=== PATIENT | male | born 1955 | race Caucasian/White ===

== ENCOUNTER 2017-03-13 15:14 | Emergency (ER) | payer OTHER ==
[~2017-03-13] VITALS: Ht 172.7 cm; Wt 108.9 kg
[2017-03-13 15:31] VITALS: BP 176/80
--- NOTE | 2017-03-13 15:49 | PHYS DOC ---
Past Medical History Past Medical History: Diabetes-Type II, High Cholesterol, Hypertension, Other Additional Past Medical Histor: PSORIASIS Past Surgical History: Other Additional Past Surgical Histo: VESTECTOMY Alcohol Use: Sober Drug Use: None Adult General Chief Complaint Chief Complaint: TESTICULAR PAIN OR INJURY [facility] HPI Patient is a 61 year old male presents to the emergency department with a history of vasectomy approximately 35 years ago. Patient states his testicle on the right had decreased to the size of a pecan and within the last 2 months he states he has had an increase in the size up to an egg. He denies dysuria, Patient states he has taken Tylenol yesterday for pain with minimal relief. 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 He denies fever, chills, nausea or vomiting. Review of Systems Review of Systems Constitutional: Denies fever or chills [] Eyes: Denies change in visual acuity, redness, or eye pain [] HENT: Denies nasal congestion or sore throat [] Respiratory: Denies cough or shortness of breath [] Cardiovascular: No additional information not addressed in HPI [] GI: Denies abdominal pain, nausea, vomiting, bloody stools or diarrhea [] : Denies dysuria or hematuria. C/o right testicle becoming larger Musculoskeletal: Denies back pain or joint pain [] Integument: Denies rash or skin lesions [] Neurologic: Denies headache, focal weakness or sensory changes [] Endocrine: Denies polyuria or polydipsia [] Current Medications Current Medications Current Medications Medications (Trade) Dose Ordered Sig/[facility] Start Time Stop Time Status Last Admin Dose Admin Acetaminophen (Tylenol) 650 mg 1X ONCE 03/13/17 16:00 03/13/17 16:03 DC 03/13/17 16:05 650 MG Allergies Allergies Allergies Coded Allergies Type Severity Reaction Last Updated Verified No Known Drug Allergies 03/13/17 No Physical Exam Physical Exam Constitutional: Well developed, well nourished, no acute distress, non-toxic appearance. [] HENT: Normocephalic, atraumatic, bilateral external ears normal, oropharynx moist, no oral exudates, nose normal. [] Eyes: PERRLA, EOMI, conjunctiva normal, no discharge. [] Neck: Normal range of motion, no tenderness, supple, no stridor. [] Cardiovascular:Heart rate regular rhythm Lungs & Thorax: no respiratory distress Skin: Warm, dry, no erythema, no rash. [] Extremities: No tenderness, no cyanosis, no clubbing, ROM intact, no edema. [] Neurologic: Alert and oriented X 3, normal motor function, normal sensory function, no focal deficits noted. [] Psychologic: Affect normal, judgement normal, mood normal. [] Right testicle appears to be riding higher than then the left. The are feels firm and full. negative cremasteric reflex Current Patient Data Vital Signs Vital Signs Date Time Temp Pulse Resp B/P (MAP) Pulse Ox O2 Delivery O2 Flow Rate FiO2 03/13/17 15:31 97.4 88 18 94 Room Air 97.4 Lab Values Laboratory Tests Test 03/13/17 15:45 Urine Collection Type Unknown Urine Color Yellow Urine Clarity Clear Urine pH 5.5 Urine Specific Stephen 1.025 Urine Protein Negative mg/dL (NEG-TRACE) Urine Glucose (UA) 100 mg/dL (NEG) Urine Ketones (Stick) Negative mg/dL (NEG) Urine Blood Negative (NEG) Urine Nitrite Negative (NEG) Urine Bilirubin Negative (NEG) Urine Urobilinogen Dipstick 0.2 mg/dL (0.2 mg/dL) Urine Leukocyte Esterase Negative (NEG) Urine RBC 0 /HPF (0-2) Urine WBC 0 /HPF (0-4) Urine Squamous Epithelial Cells Few /LPF Urine Bacteria 0 /HPF (0-FEW) Urine Hyaline Casts Few /HPF Urine Mucus Marked /LPF EKG EKG [] Radiology/Procedures Radiology/Procedures [][facility] [address] [place] [address] IMAGING REPORT Signed PATIENT: MISA GARCIA ACCOUNT: [id number] : 1955 LOCATION: ER AGE: 61 SEX: M EXAM STATUS: REG ER ORD. PHYSICIAN: CYRUS BARRON APRN REASON: pain in the scrotum/testicle, right PROCEDURE: TESTICULAR/SCROTUM Examination: Ultrasound testis History: History of right-sided testicular pain. Comparison: None available Findings: The right testis measures 3.7 x 3.5 x 3.3 cm. There are at least 2 irregular appearing hypoechoic masses identified in the right testis measuring 1.7 cm and 2.3 cm. The superior testicular mass appears irregular with possible extension to the right epididymis. However evaluation is limited. The right epididymis appears heterogeneous and enlarged. There is blood flow identified within these masses. The left testis measures 5.4 x 2.7 x 3.5 cm. Blood flow identified in the right and left testis. There is a small cyst identified in the left epididymis measuring 5 mm. Small bilateral hydroceles. Impression: Irregular hypoechoic masses identified in the right testis and possibly the right epididymis with vascular flow within as described above, suspect right testicular malignancy or metastasis. DICTATED and SIGNED BY: LIZZETTE PASCAL MD DATE: 03/13/17 [id number] CC: CYRUS BARRON APRN; NON,STAFF; UNKNOWN PCP NAME ~ Course & Med Decision Making Course & Med Decision Making Pertinent Labs and Imaging studies reviewed. (See chart for details) Urine was negative for urinary tract infection, ultrasound was completed with report showing an irregular hypoechoic mass identified in the right testes and possibly the right epididymis with the vascular flow within the described above suspected right testicular malignancy or metastasis. Patient will be discharged home with vicoprofen for pain. He was instructed that this medication will cause drowsiness do not take if you need to alert and oriented. Patient will placed on levoquin for the next 10 days. He was recommended to followup with his primary care provider as soon as possible. Patient agrees with discharge instructions, treatment regimen and followup recommendations. All questions and concerns were answered at bedside. [] Dragon Disclaimer Dragon Disclaimer This electronic medical record was generated, in whole or in part, using a voice recognition dictation system. Departure Departure Impression: Primary Impression: Scrotal pain Disposition: HOME, SELF-CARE Condition: STABLE Patient Instructions: Epididymitis, Testicular Cancer, Treatment Options Additional Instructions: Activity as tolerate Vicoprofen as needed for pain. This medication will cause drowsiness do not take if you need to be alert and oriented Tylenol may be taken as well for pain while you are driving Medication as prescribed Followup with primary care provider as soon as possible Return to emergency department as needed for signs and symptoms that become worse. Scripts Hydrocodone/Ibuprofen (HYDROCODONE-IBUPROFEN 7.5-200 ) 1 Each Tablet 1 TAB PO PRN Q6HRS Y for PAIN, #15 TAB 0 Refills Prov: CYRUS BARRON APRN 03/13/17 Levofloxacin (LEVAQUIN) 500 Mg Tablet 1 TAB PO DAILY, #10 TAB Prov: CYRUS BARRON APRN 03/13/17 CYRUS BARRON APRN Mar 13, 2017 15:49
[2017-03-13 16:00] LABS: BILIRUBIN,URINE NEGATIVE (NEG); GLUCOSE,URINE 100 mg/dL (NEG); NITRITE,URINE NEGATIVE (NEG); PH,URINE 5.5; PROTEIN,URINE NEGATIVE (NEG-TRACE); UROBILINOGEN,URINE 0.2 mg/dL (0.2 mg/dL)
[2017-03-13] MEDS ORDERED: ACETAMINOPHEN 325 MG TABLET. PO ONE (16:00)
[2017-03-13 16:19] LABS: BACTERIA,URINE 0 /HPF (0-FEW); RBC,URINE 0 /HPF (0-2); SQUAMOUS EPITHELIAL CELL,UR FEW /LPF; WBC,URINE 0 /HPF (0-4)
--- NOTE | 2017-03-13 16:44 | RAD ---
Examination: Ultrasound testis History: History of right-sided testicular pain. Comparison: None available Findings: The right testis measures 3.7 x 3.5 x 3.3 cm. There are at least 2 irregular appearing hypoechoic masses identified in the right testis measuring 1.7 cm and 2.3 cm. The superior testicular mass appears irregular with possible extension to the right epididymis. However evaluation is limited. The right epididymis appears heterogeneous and enlarged. There is blood flow identified within these masses. The left testis measures 5.4 x 2.7 x 3.5 cm. Blood flow identified in the right and left testis. There is a small cyst identified in the left epididymis measuring 5 mm. Small bilateral hydroceles. Impression: Irregular hypoechoic masses identified in the right testis and possibly the right epididymis with vascular flow within as described above, suspect right testicular malignancy or metastasis.
[2017-03-13] MEDS ORDERED: HYDR-79 PO (17:31)
[2017-03-13] MEDS ORDERED: LEVO500T59 PO (17:31)
== END 2017-03-13 17:36 | disposition home or self-care (01) ==
LOC: ER 15:14
DX: N50.82 Scrotal pain (principal); E11.9 Type 2 diabetes mellitus without complications; E78.00 Pure hypercholesterolemia, unspecified; I10 Essential (primary) hypertension; L40.9 Psoriasis, unspecified; Z98.52 Vasectomy status
CPT/HCPCS: 76870; 81001; 99285-25